=== PATIENT | female | born 1985 | race American Indian/Alaskan Native ===

== ENCOUNTER 2017-02-10 09:54 | Inpatient (IN) | payer MEDICAID ==
[2017-02-10 10:22] VITALS: BMI 26.3
[2017-02-10] MEDS ORDERED: ceFAZolin IV 2 gm in Dextrose 2 GM/50 ML BAG IVPB ONE ×2 (10:37→10:50)
[2017-02-10] MEDS ORDERED: Lactated Ringer's 2,000 ML IV SCH (10:45)
[2017-02-10 10:57] LABS: BASO % 0.7 % (0.0-2.0); EOS # 0.1 K/uL (0.0-0.7); HEMATOCRIT 31.9 % (34.0-47.0); LYMPH # 0.3 K/uL (1.0-4.3); LYMPH % 5.1 % (20.0-40.0); MEAN CELL VOLUME 83.1 fl (81.0-99.0); MEAN CORPUSCULAR HEMOGLOBIN 27.4 pg (27.0-31.0); MEAN CORPUSCULAR HGB CONC 32.9 g/dL (33.0-37.0); MEAN PLATELET VOLUME 8.4 fl (7.2-11.7); MONO # 0.6 K/uL (0.0-0.8); MONO % 11.1 % (0.0-10.0); NEUT % 81.1 % (50.0-75.0); NRBC % 0.1 % (0.0-0.0); PLATELET COUNT 237 K/uL (130-400); RED CELL DISTRIBUTION WIDTH 14.7 % (11.5-14.5)
[2017-02-10] MEDS ORDERED: Oxytocin 30 UNITS in Sodium Chloride 0.9% 500 ML IV SCH (11:00)
[2017-02-10 12:04] LABS: EOSINOPHIL 2 % (0-7); NEUTROPHIL 71 % (42-75); TOTAL CELLS COUNTED 100
[2017-02-10 12:05] LABS: GIANT PLATELETS PRESENT; LARGE PLATELETS PRESENT
[2017-02-10] MEDS ORDERED: DiphenhydrAMINE 50 mg/ml Inj IVP PRN (12:49)
[2017-02-10] MEDS ORDERED: Naloxone 0.4 mg/ml Inj (Adult) IVP PRN (12:49)
--- NOTE | 2017-02-10 13:41 | OBDS ---
DELIVERY PERSONNEL Delivery Doctor: Denys Villalobos MD Scrub Nurse: Hanh Guevara OBT Data Architect: Baldev Warner RN Anesthesiologist: Nilsa Forte MD MATERNAL INFORMATION Delivery Anesthesia: Spinal Medications in Delivery: Pitocin 30u/500LR Estimated Blood Loss (ml): 800 Placenta Cultured: No Provider Comments: Repeat low flap transverse section via Pfannenstiel incision. Patient delivered viable infant male with Apgars of 9 and 9 at one and 5 minutes respectively. Nor mal uterus, normal ovaries bilaterally, fallopian tubes with significant adhesions. Estimated blood loss 800 mL Fluids 1300 mL lactated Ringer's 200 mL of clear urine No Complications LABOR SUMMARY EDC: 02/16/2017 00:00 Attempted: No STAGES OF LABOR Stage 3 hrs: 0 Stage 3 min: 1 CSECTION DELIVERY Primary Indication: Repeat Elective CSection Urgency: N/A CSection Incidence: Repeat Labor: No Labor CSection Incision: Lower Uterine Transverse BABY A INFORMATION Infant Delivery Date/Time: 02/10/2017 12:22 Method of Delivery: Born in Route : No : N/A Forceps: N/A Vacuum Extraction: N/A Shoulder Dystocia : No SHOULDER DYSTOCIA BABY A Delivery Date/Time: 02/10/2017 12:22 PRESENTATION/POSITION BABY A Presentation: Cephalic PLACENTA INFORMATION BABY A Placenta Delivery Time : 02/10/2017 12:23 Placenta Method of Delivery: Manual Removal Placenta Status: Delivered SCORES BABY A Heart Rate 1 min: >100 bpm Resp Effort 1 min: Good Cry Reflex Irritability 1 min: Cough or Sneeze or Pulls Away Muscle Tone 1 min: Active Motion Color 1 min: Body Bobo, Extremities Blue SCORE 1 MIN: 9 Heart Rate 5 min: >100 bpm Resp Effort 5 min: Good Cry Reflex Irritability 5 min: Cough or Sneeze or Pulls Away Muscle Tone 5 min: Active Motion Color 5 min: Body Bobo, Extremities Blue SCORE 5 MIN: 9 INFANT INFORMATION BABY A Gestational Age at Delivery: 39.1 Gestational Status: Term Outcome : Liveborn Infant Condition : Stable IDENTIFICATION/MEDS BABY A ID Band Number: [id number] ID Band Location: Left Leg; Left Arm WEIGHT/LENGTH BABY A Birthweight (gms): 3020 Infant Weight (lb): 6 Weight (oz): 10 CORD INFORMATION BABY A No. Cord Vessels: 3 Nuchal Cord : N/A Cord Blood Taken: Yes Infant Suction: None ASSESSMENT BABY A Infant Complications: None Physical Findings at Delivery: Within Normal Limits Respirations: Appears Normal Infant Care By: Linda DOUGLAS Transferred To: Nursery
--- NOTE | 2017-02-10 15:49 | OP ---
PROCEDURE DATE: 02/10/2017 PREOPERATIVE DIAGNOSIS: Elective repeat section at 39 weeks' gestational age. POSTOPERATIVE DIAGNOSIS: Elective repeat section at 39 weeks' gestational age. OPERATION PERFORMED: Repeat low flap transverse section via Pfannenstiel incision. SURGEON: Rubén Villalobos MD. PARTS ROOM ASSOCIATE: Eugenia Henderson MD. Dr. Henderson was present from the beginning of the procedure to the end of procedure. Dr. Henderson was integral in exposing the surgical field, controlling intraoperative bleeding, removal of intraoperative adhesions and manual delivery of the infant. TYPE OF ANESTHESIA: Spinal. ANESTHESIA ADMINISTERED BY: Esperanza Forte MD. IV FLUID INTAKE: 1300 mL of lactated Ringer's. ESTIMATED BLOOD LOSS: 800 mL. URINE OUTPUT: 200 mL of clear urine at the end of procedure. DESCRIPTION OF PROCEDURE: The patient was taken to the operating room where spinal anesthesia was found to be adequate. The patient was prepped and draped in a normal sterile fashion in the dorsal supine position with a leftward tilt. A Pfannenstiel skin incision was made with a scalpel. This was carried down through to the underlying layer of fascia with the scalpel. Midline defect was made in the fascial layer with a scalpel. The fascial incision was then extended bilaterally sharply with Metzenbaum scissors. The fascial layer was from the underlying rectus muscles both bluntly and sharply with curved Adams scissors. The rectus muscles were at the midline. The peritoneum was then identified, tented up with Tanisha clamps x 2 and entered sharply with Metzenbaum scissors. This peritoneal incision was then extended superiorly and inferiorly with good visualization of the urinary bladder. Bladder blade was inserted into the abdomen. The vesicouterine peritoneum was then identified, tented up with Tanisha clamps x 2, entered sharply with Metzenbaum scissors. This peritoneal incision was then extended bilaterally sharply with Metzenbaum scissors. The [place] retractors were placed over the urinary bladder. The uterus was incised with a scalpel. The uterine incision was extended bilaterally bluntly. The infant's head was delivered atraumatically. Nose and mouth were suctioned with bulb suction. The remainder of the was delivered without complication. The cord was clamped and cut. The was handed off to waiting pediatricians. The placenta was removed manually. The uterus was cleared of all clots and debris. The uterine incision was repaired with 0 Vicryl in a running, locked fashion. A second layer of the same suture was used to imbricate the first and to obtain excellent hemostasis. Reinspection of the uterine incision proved excellent hemostasis. The abdomen and pelvis were irrigated with a copious amounts of warm normal saline. Reinspection of the uterine incision proved excellent hemostasis. All instruments were removed from the patient. The peritoneal layer was closed with a running stitch of 2-0 chromic. The rectus muscles were reapproximated in the midline with a running stitch of 2-0 chromic. The fascial layer was closed with a running stitch of 0 Vicryl. Subcutaneous tissue was closed with a running stitch of 3-0 plain. The skin was closed with 3-0 Vicryl and a subcutaneous stitch. The patient tolerated the procedure well. All sponge count, lap count and needle counts were correct x 2. The patient was given 2 g of Ancef just prior to the beginning of the procedure. There were no complications. The patient was taken to the recovery room awake and in stable condition. Due to extensive adhesions in the adnexa, bilateral tubal ligation was unable to be performed. I discussed this with the patient directly following the surgery. I recommended the patient that an alternate form of control will be needed for the future. Rubén Villalobos MD
[2017-02-10] MEDS: Oxycodone/Acetaminophen 5/325 mg Tab PO PRN ×2 (17:31→21:21)
[2017-02-11] MEDS: Oxycodone/Acetaminophen 5/325 mg Tab PO PRN ×4 (01:14→22:51)
[2017-02-11 07:50] LABS: HEMATOCRIT 29.1 % (34.0-47.0); MEAN CELL VOLUME 84.4 fl (81.0-99.0); MEAN CORPUSCULAR HEMOGLOBIN 27.6 pg (27.0-31.0); MEAN CORPUSCULAR HGB CONC 32.7 g/dL (33.0-37.0); RED CELL DISTRIBUTION WIDTH 14.6 % (11.5-14.5); WHITE BLOOD COUNT 6.1 K/uL (4.8-10.8)
--- NOTE | 2017-02-11 07:58 | OBPPN ---
Datetime: 02/11/2017 07:56 PP Pain Prov: Within normal limits PP Nausea Prov: Denies PP Flatus Prov: Yes PP Breasts Prov: Normal PP Heart Prov: Normal PP Lungs Prov: Normal PP Abdomen/Uterus Prov: Normal PP Lochia Prov: Normal PP Vulva/Perineum Prov: Normal PP CVA Tenderness Prov: Normal PP Extremities Prov: Normal PP Comments Phys Exam Prov: FUndus firm under umbilicus PP Impression Prov: Normal progression PP Plan Prov: Continue present management PP Progress Note Prov: Patient denies Cp, no SOB, no N/V, tolerating PO diet, ambulating minimal, ab dominal pain tolerable with medicine, mild lochia A/P 1. Reg diet, 2. Percocet/Motrin prn 3. Mylicon prn gas pain 4. Encourage ambulation/ IP PP Procedures: None Vital Signs Provider PP: Reviewed; Within Normal Limits
[2017-02-11] MEDS: Simethicone 80 mg Chewtab PO PRN ×3 (08:29→23:15)
[2017-02-12] MEDS: Oxycodone/Acetaminophen 5/325 mg Tab PO PRN ×3 (05:45→19:13)
--- NOTE | 2017-02-12 07:32 | OBPPN ---
Datetime: 02/12/2017 07:28 PP Pain Prov: Within normal limits PP Nausea Prov: Denies PP Flatus Prov: Yes PP BM Prov: Yes PP Abdomen/Uterus Prov: Normal PP Lochia Prov: Normal PP C/S Incision Prov: Normal PP Progress Prov: Normal PP Comments Phys Exam Prov: Incision intact w/ steri strips PP Impression Prov: Normal progression PP Plan Prov: Continue present management PP Progress Note Prov: POD 2 s/p Repeat c/s, doing well, breast and bottle feeding Continue current care Vital Signs Provider PP: Reviewed; Within Normal Limits
[2017-02-13] MEDS: Oxycodone/Acetaminophen 5/325 mg Tab PO PRN ×2 (00:29→07:52)
[2017-02-13] MEDS: Simethicone 80 mg Chewtab PO PRN ×2 (00:31→12:41)
--- NOTE | 2017-02-13 10:34 | OBPPN ---
Datetime: 02/13/2017 10:33 PP Pain Prov: Within normal limits PP Nausea Prov: Denies PP Flatus Prov: Yes PP Breasts Prov: Normal PP Heart Prov: Normal PP Lungs Prov: Normal PP Abdomen/Uterus Prov: Normal PP Lochia Prov: Normal PP Vulva/Perineum Prov: Normal PP CVA Tenderness Prov: Normal PP Extremities Prov: Normal PP Comments Phys Exam Prov: Fundus firm under umbilicus PP Impression Prov: Normal progression PP Plan Prov: Continue present management PP Progress Note Prov: Patient denies CP, no SOB, no N/V, tolerating PO diet, ambulating/voiding wel l, mild lochia, abdominal pain tolerable with meds A/P POD #3 1. Discharge patient home 2. Discharge instructions reviewed IP PP Procedures: None Vital Signs Provider PP: Reviewed; Within Normal Limits
--- NOTE | 2017-02-13 10:36 | OBDCSUM ---
Datetime: 02/13/2017 09:21 Discharged to, Provider: Home Follow up at, Provider: arlene Disch Instr Activity: May Shower Disch Instr Diet: Regular Discharge Instructions, Provider: Routine instructions given Discharge Diagnosis, Provider: Term Delivered Discharge Time: 02/13/2017 13:00 Disch Referrals: None Contraception discussed, Prov: Yes Disch Activity Restrictions: No sexual activity; Nothing in vagina - [place], tampons, douche
[2017-02-13 20:51] VITALS: BP 121/85; PULSE 79; RESP 18; TEMP 98.1; O2SAT 99
== END 2017-02-13 14:30 | disposition home or self-care (01) | DRG 371 ==
LOC: H.L&D 10:40 → H.OB/GYN 17:42
PROVIDERS: ADMIT Obstetrics & Gynecology; ATTEND Obstetrics & Gynecology
PROC: 10D00Z1 Extraction of Products of Conception, Low, Open Approach (ICD-10-PCS; principal; 2017-02-10)
PROC: 4A1HXCZ Monitoring of Products of Conception, Cardiac Rate, External Approach (ICD-10-PCS; 2017-02-10)
DX: O34.211 Maternal care for low transverse scar from previous cesarean delivery (principal); N85.8 Other specified noninflammatory disorders of uterus; Z37.0 Single live birth; Z3A.39 39 weeks gestation of pregnancy